=== PATIENT | female | born 1995 | race Hispanic/Latino ===

== ENCOUNTER 2018-07-29 02:42 | Emergency (ER) | payer SELFPAY ==
[~2018-07-29] VITALS: Ht 167.6 cm; Wt 93.1 kg
[~2018-07-29 02:42] MED LIST: NO MEDS; ULTRAM50 M1 PO
[2018-07-29 02:50] VITALS: BP 130/87
[2018-07-29 03:38] LABS: HEMOGLOBIN 14.2 g/dl (12.0-16.0); IMMATURE GRANULOCYTES 0.4 % (0.0-5.0); MEAN CELL VOLUME 88.7 fL CALC (80.0-100.0); MEAN CORPUSCULAR HGB 30.7 pG CALC (26.0-32.0); MEAN CORPUSCULAR HGB CONC 34.6 g/L CALC (32.0-36.0); NEUT# 3.17 thou/uL (2.00-7.15); RED BLOOD COUNT 4.62 mill/uL (4.20-5.60); RED CELL DISTRI WIDTH 12.1 % (11.5-15.5)
[2018-07-29] MEDS ORDERED: ROBITUSSIN AC10 ML PO (03:59)
== END 2018-07-29 04:15 | disposition home or self-care (01) | DRG 153 ==
LOC: ED 02:42
PROVIDERS: Family Medicine
DX: J11.1 Influenza due to unidentified influenza virus with other respiratory manifestations (principal)

== ENCOUNTER 2020-02-19 04:21 | Emergency (ER) | payer SELFPAY ==
[~2020-02-19] VITALS: Ht 167.6 cm; Wt 109.0 kg
[~2020-02-19 04:21] MED LIST changes: +ROBITUSSIN AC10 ML PO
[2020-02-19 05:01] LABS: HEMATOCRIT 38.6 % (37.0-47.0); HEMOGLOBIN 12.9 g/dl (12.0-16.0); IMMATURE GRANULOCYTES 0.5 % (0.0-5.0); MEAN CELL VOLUME 89.4 fL CALC (80.0-100.0); MEAN CORPUSCULAR HGB 29.9 pG CALC (26.0-32.0); MEAN CORPUSCULAR HGB CONC 33.4 g/dL CAL (32.0-36.0); NEUT# 5.76 thou/uL (2.00-7.15); RED BLOOD COUNT 4.32 mill/uL (4.20-5.60); RED CELL DISTRI WIDTH 12.4 % (11.5-15.5)
[2020-02-19 05:02] LABS: URINE BILIRUBIN - DIPSTICK NEGATIVE (NEGATIVE); URINE BLOOD DIPSTICK NEGATIVE (NEGATIVE); URINE COLOR YELLOW; URINE GLUCOSE - DIPSTICK NEGATIVE (NEGATIVE); URINE KETONE NEGATIVE (NEGATIVE); URINE LEUK ESTERASE TRACE (NEGATIVE); URINE NITRITE - DIPSTICK NEGATIVE (Negative); URINE PH 5.5 (4.5-8.0); URINE PROTEIN - DIPSTICK NEGATIVE (NEG-TRACE); URINE SPECIFIC GRAVITY >=1.030; URINE UROBILINOGEN - DIPSTICK 0.2 E.U./dL (0.2)
[2020-02-19 05:15] LABS: ALKALINE PHOSPHATASE 61 u/l (38-126); ANION GAP 10 (6-22 (CALC)); BILIRUBIN, TOTAL 0.4 mg/dL (0.0-1.4); BUN 11 mg/dL (7-17); BUN/CREATININE RATIO 21 (12-20 (CALC)); CARBON DIOXIDE 25 mmol/l (22-30); CHLORIDE 104 mmol/l (95-108); CREATININE 0.5 mg/dL (0.5-1.0); GFR > 60 ML/MIN (>=60 (CALC)); GFR FOR AFR.AMER. > 60 ML/MIN (>=60 (CALC)); LIPASE 70 u/l (23-300); POTASSIUM 3.6 mmol/l (3.5-5.1); SGOT/AST 23 u/l (14-36); TOTAL PROTEIN 6.6 g/dL (6.3-8.2)
[2020-02-19 05:37] LABS: SODIUM 135 mmol/l (137-146)
[2020-02-19 06:00] VITALS: BP 110/55
== END 2020-02-19 06:00 | disposition home or self-care (01) | DRG 392 ==
LOC: ED 04:21
PROVIDERS: Emergency Medicine
DX: R11.2 Nausea with vomiting, unspecified (principal)

== ENCOUNTER 2021-03-04 17:55 | Emergency (ER) | payer SELFPAY ==
[~2021-03-04] VITALS: Ht 167.6 cm; Wt 105.0 kg
[2021-03-05 00:52] LABS: URINE BILIRUBIN - DIPSTICK NEGATIVE (NEGATIVE); URINE COLOR YELLOW; URINE GLUCOSE - DIPSTICK NEGATIVE (NEGATIVE); URINE KETONE NEGATIVE (NEGATIVE); URINE LEUK ESTERASE SMALL (NEGATIVE); URINE NITRITE - DIPSTICK NEGATIVE (Negative); URINE PROTEIN - DIPSTICK NEGATIVE (NEG-TRACE); URINE SPECIFIC GRAVITY 1.025; URINE UROBILINOGEN - DIPSTICK 0.2 E.U./dL (0.2)
[2021-03-05 00:53] LABS: URINE BLOOD DIPSTICK NEGATIVE (NEGATIVE)
[2021-03-05 01:01] LABS: URINE BACTERIA FEW hpf; URINE EPITHELIAL CELLS MANY EPI/hpf (0-FEW)
[2021-03-05] MEDS ORDERED: ZPAK PO (01:34)
[2021-03-05] MEDS ORDERED: ATIVAN0.5 MG PO (01:34)
[2021-03-05 01:40] VITALS: BP 155/90
== END 2021-03-05 01:50 | disposition home or self-care (01) | DRG 880 ==
LOC: ED 17:55
PROVIDERS: Emergency Medicine
DX: F41.9 Anxiety disorder, unspecified (principal); N39.0 Urinary tract infection, site not specified; Z20.822 Contact with and (suspected) exposure to COVID-19

== ENCOUNTER 2021-05-01 10:53 | Emergency (ER) | payer SELFPAY ==
[~2021-05-01] VITALS: Ht 167.6 cm; Wt 135.0 kg
[~2021-05-01 10:53] MED LIST changes: +ATIVAN0.5 MG PO; +ZPAK PO
[2021-05-01] MEDS ORDERED: ZPAK PO (12:28)
[2021-05-01 12:37] VITALS: BP 122/84
== END 2021-05-01 12:42 | disposition home or self-care (01) | DRG 153 ==
LOC: ED 10:53
DX: J06.9 Acute upper respiratory infection, unspecified (principal); Z20.822 Contact with and (suspected) exposure to COVID-19